=== PATIENT | male | born 1940 ===

== ENCOUNTER 2021-12-20 20:12 | Emergency (ER) | payer OTHER ==
[~2021-12-20] VITALS: Ht 167.6 cm; Wt 69.9 kg
[~2021-12-20 20:12] MED LIST: METFORMIN HCL500 MG PO; PARA COLESTEROL
== END 2021-12-20 22:13 | disposition home or self-care (01) ==
LOC: ER 20:12
DX: E11.649 Type 2 diabetes mellitus with hypoglycemia without coma (principal); Z79.84 Long term (current) use of oral hypoglycemic drugs; I10 Essential (primary) hypertension